=== PATIENT | female | born 1985 | race African-American/Black ===

== ENCOUNTER 2017-07-20 18:13 | Emergency (ER) | payer OTHER ==
[~2017-07-20] VITALS: Ht 160 cm; Wt 124.7 kg
[~2017-07-20 18:13] MED LIST: NORCO 5-325 TA1 EACH PO; PENICILLIN VK500 M1 PO
[2017-07-20 18:43] LABS: URINE BILIRUBIN NEGATIVE (Negative); URINE BLOOD NEGATIVE (Negative); URINE COLOR YELLOW; URINE GLUCOSE-RANDOM* NEGATIVE (Negative); URINE KETONES NEGATIVE (Negative); URINE LEUKOCYTES-REFLEX NEGATIVE (Negative); URINE PROTEIN (DIPSTICK) NEGATIVE (Negative); URINE UROBILINOGEN 0.2 E.U./dl (0.2-1.0)
[2017-07-20 18:45] LABS: HEMOGLOBIN 10.2 gm/dL (12.0-15.0); MCH 20.9 pg (26.0-34.0); MCHC 31.9 g/dL (28.0-37.0); MCV 65.5 fL (80.0-100.0); PLATELET COUNT 295 thou/uL (150-400); RBC 4.88 mil/uL (4.20-5.00); RDW 19.3 % (10.5-14.5); WBC 11.3 thou/uL (4.0-11.0)
[2017-07-20 19:01] LABS: CALCIUM 8.7 mg/dL (8.5-10.1); CREATININE 0.6 mg/dL (0.6-1.0)
[2017-07-20 19:03] LABS: POTASSIUM 4.3 mmol/L (3.5-5.1)
[2017-07-20 19:06] LABS: ALBUMIN 3.4 g/dL (3.4-5.0); TOTAL BILIRUBIN 0.4 mg/dL (<0.1-1.0); TOTAL PROTEIN 7.3 g/dL (6.4-8.2)
[2017-07-20 19:11] LABS: MANUAL DIFF YES
[2017-07-20] MEDS ORDERED: ZOFRAN ODT4 MG DISSOLVE (19:36)
[2017-07-20 19:38] LABS: ABSOLUTE NEUTROPHILS 7.6 thou/uL (1.4-8.2); TOTAL CELL COUNT 100
[2017-07-20 19:39] LABS: ANISOCYTOSIS 2+; HYPOCHROMASIA 3+; MICROCYTES 3+; TARGET CELLS FEW
[2017-07-20 20:21] VITALS: BP 134/69
== END 2017-07-20 20:24 | disposition home or self-care (01) ==
LOC: ER 18:13
PROVIDERS: Emergency Medicine
DX: O26.891 Other specified pregnancy related conditions, first trimester (principal); G44.209 Tension-type headache, unspecified, not intractable; K59.00 Constipation, unspecified; R10.13 Epigastric pain; Z3A.00 Weeks of gestation of pregnancy not specified; Z88.2 Allergy status to sulfonamides